=== PATIENT | male | born 1975 | race Caucasian/White ===

== ENCOUNTER 2019-06-19 16:27 | Emergency (ER) | payer BC ==
[~2019-06-19] VITALS: Ht 177.8 cm; Wt 110.0 kg
[2019-06-19 17:04] LABS: BASOPHILS # (AUTO) 0.1 X10'3 (0-0.2); BASOPHILS % (AUTO) 0.8 % (0-1); EOSINOPHILS # (AUTO) 0.1 X10'3 (0-0.9); EOSINOPHILS % (AUTO) 0.9 % (0-6); HEMATOCRIT 46.3 % (42.0-52.0); HEMOGLOBIN 16.4 g/dl (14.0-17.9); LYMPHOCYTES # (AUTO) 1.9 X10'3 (1.1-4.8); LYMPHOCYTES % (AUTO) 19.4 % (21-51); MEAN CORPUSCULAR HEMOGLOBIN 30.6 PG (27.0-31.0); MEAN CORPUSCULAR HGB CONC 35.4 g/dL (33.0-36.5); MEAN CORPUSCULAR VOLUME 86.4 FL (78-98); MEAN PLATELET VOLUME 10.3 FL (7.4-10.4); MONOCYTES # (AUTO) 0.6 X10'3 (0-0.9); MONOCYTES % (AUTO) 6.5 % (2-12); NEUTROPHILS # (AUTO) 7.1 X10'3 (1.8-7.7); NEUTROPHILS % (AUTO) 72.4 % (42-75); PLATELET COUNT 154 X10'3 (140-440); RED BLOOD COUNT 5.36 X10'6 (4.70-6.10); RED CELL DISTRIBUTION WIDTH 12.9 % (11.5-14.5); WHITE BLOOD COUNT 9.7 X10'3 (4.5-11.0)
[2019-06-19 17:26] LABS: ALANINE AMINOTRANSFERASE 95 U/L (12-78); ALBUMIN 3.6 G/DL (3.4-5.0); ALKALINE PHOSPHATASE 78 IU/L (46-116); ANION GAP 6 (8-16); ASPARTATE AMINO TRANSFERASE 41 U/L (10-37); BILIRUBIN,TOTAL 0.6 MG/DL (0.1-1.0); BLOOD UREA NITROGEN 17 MG/DL (7-18); BUN/CREATININE RATIO 15.2 (5.4-32.0); CALCIUM 9.3 MG/DL (8.5-10.1); CHLORIDE 102 MMOL/L (99-107); CREATININE 1.12 MG/DL (0.60-1.10); GLUCOSE 281 MG/DL (70-104); POTASSIUM 4.1 MMOL/L (3.5-5.1); SODIUM 136 MMOL/L (135-145); TOTAL CARBON DIOXIDE 28.2 MMOL/L (24-32); TOTAL PROTEIN 7.3 G/DL (6.4-8.2); eGFR 72 ML/MIN
[2019-06-19 18:16] LABS: CLARITY,URINE CLEAR (Clear); COLOR,URINE YELLOW (Yellow); GLUCOSE, URINE >=1000 mg/dl (Neg); KETONES,URINE NEGATIVE (Neg); LEUKOCYTE ESTERASE ,URINE NEGATIVE (Neg); NITRITES, URINE NEGATIVE (Neg); OCCULT BLOOD,URINE TRACE-INTACT (Neg); PROTEIN,URINE >=300 mg/dl (Neg); UROBILINOGEN,URINE 0.2 E.U/dL (0.2-1.0)
[2019-06-19 18:20] LABS: UA COLLECTION TYPE CLN CATCH MIDSTREAM
[2019-06-19 18:26] LABS: COARSE GRANULAR CAST 0-3 /LPF (NEGATIVE); HYALINE CASTS 0-3 /LPF (NEGATIVE); MUCUS STRANDS FEW /LPF (Neg); SQUAMOUS EPITHELIAL CELL,UR MODERATE /LPF (FEW)
[2019-06-19 18:27] LABS: BACTERIA,URINE FEW /HPF (Neg); RBC,URINE 0-2 /HPF (0-2); WBC,URINE 0-4 /HPF (0-4)
[2019-06-19] MEDS ORDERED: morphine 4 MG/ML inj SYRINge IV PRN (18:35)
[2019-06-19] MEDS ORDERED: metoclopramide 5 mg/ml inj IV ONE (18:35)
[2019-06-19] MEDS ORDERED: normal saline 1000ML IV soln IVB ONE (18:35)
[2019-06-19 19:04] LABS: LIPASE 187 U/L (73-393)
[2019-06-19] MEDS ORDERED: NAPR-56 PO (19:40)
[2019-06-19] MEDS ORDERED: ONDA4TAB6 PO (19:40)
[2019-06-19 20:03] VITALS: BP 135/97
== END 2019-06-19 20:01 | disposition home or self-care (01) ==
LOC: ER 16:27
DX: R10.11 Right upper quadrant pain (principal); R10.31 Right lower quadrant pain; R19.7 Diarrhea, unspecified; R11.2 Nausea with vomiting, unspecified; E11.9 Type 2 diabetes mellitus without complications; F10.99 Alcohol use, unspecified with unspecified alcohol-induced disorder; Z79.899 Other long term (current) drug therapy; Y90.9 Presence of alcohol in blood, level not specified
CPT/HCPCS: 36415; 74176; 80053; 81001; 83690; 85025; 85610; 96361; 96374; 96375; 99284; J2270; J2765; J7030

== ENCOUNTER 2019-10-04 23:18 | Emergency (ER) | payer BC, OTHER ==
[~2019-10-04] VITALS: Ht 177.8 cm; Wt 109.3 kg
[~2019-10-04 23:18] MED LIST: ONDA4TAB6 PO
[2019-10-04 23:20] VITALS: BP 180/100
[2019-10-05] MEDS ORDERED: orphenadrine citrate 60mg/2ml inj. IM ONE (00:40)
[2019-10-05] MEDS ORDERED: ketorolac tromethamine 15mg/ml inj. IM ONE (00:40)
[2019-10-05] MEDS ORDERED: IBUP-1985 PO (00:41)
[2019-10-05] MEDS ORDERED: METH-360 PO (00:41)
== END 2019-10-05 01:02 | disposition home or self-care (01) ==
LOC: ER 23:18
DX: M54.41 Lumbago with sciatica, right side (principal); E11.9 Type 2 diabetes mellitus without complications; F10.99 Alcohol use, unspecified with unspecified alcohol-induced disorder; Z79.899 Other long term (current) drug therapy; Y90.9 Presence of alcohol in blood, level not specified
CPT/HCPCS: 96372; 99284; J1885; J2360

== ENCOUNTER 2020-08-27 12:16 | Inpatient (IN) | payer OTHER ==
[~2020-08-27] VITALS: Ht 177.8 cm; Wt 109.1 kg
[~2020-08-27 12:16] MED LIST changes: +IBUP-1985 PO; +METH-360 PO
[2020-08-27 12:36] LABS: BASOPHILS # (AUTO) 0.1 X10'3 (0-0.2); BASOPHILS % (AUTO) 0.7 % (0-1); EOSINOPHILS # (AUTO) 0.1 X10'3 (0-0.9); EOSINOPHILS % (AUTO) 1.1 % (0-6); HEMATOCRIT 46.6 % (42.0-52.0); HEMOGLOBIN 15.9 g/dl (14.0-17.9); LYMPHOCYTES # (AUTO) 2.8 X10'3 (1.1-4.8); LYMPHOCYTES % (AUTO) 23.3 % (21-51); MEAN CORPUSCULAR HEMOGLOBIN 29.5 PG (27.0-31.0); MEAN CORPUSCULAR HGB CONC 34.2 g/dL (33.0-36.5); MEAN CORPUSCULAR VOLUME 86.2 FL (78-98); MEAN PLATELET VOLUME 10.6 FL (7.4-10.4); MONOCYTES # (AUTO) 0.8 X10'3 (0-0.9); MONOCYTES % (AUTO) 6.9 % (2-12); NEUTROPHILS # (AUTO) 8.1 X10'3 (1.8-7.7); PLATELET COUNT 155 X10'3 (140-440); WHITE BLOOD COUNT 11.8 X10'3 (4.5-11.0)
[2020-08-27 12:53] LABS: ALANINE AMINOTRANSFERASE 42 U/L (12-78); ALBUMIN 3.1 G/DL (3.4-5.0); ALBUMIN/GLOBULIN RATIO 0.9 (1.1-1.5); ALKALINE PHOSPHATASE 83 IU/L (46-116); ANION GAP 8 (8-16); ASPARTATE AMINO TRANSFERASE 24 U/L (10-37); BILIRUBIN,TOTAL 0.3 MG/DL (0.1-1.0); BLOOD UREA NITROGEN 23 MG/DL (7-18); BUN/CREATININE RATIO 15.1 (5.4-32.0); CALCIUM 9.2 MG/DL (8.5-10.1); CHLORIDE 104 MMOL/L (99-107); CREATININE 1.52 MG/DL (0.60-1.10); GLUCOSE 167 MG/DL (70-104); POTASSIUM 3.6 MMOL/L (3.5-5.1); SODIUM 140 MMOL/L (135-145); TOTAL CARBON DIOXIDE 28.4 MMOL/L (24-32); TOTAL PROTEIN 6.5 G/DL (6.4-8.2); eGFR 50 ML/MIN
[2020-08-27] MEDS ORDERED: nitroGLYCERIN 0.4mg/hour patch TD ONE (13:20)
[2020-08-27] MEDS ORDERED: heparin 10,000 units/1 ML INJ IV ONE ×3 (13:20→15:10)
[2020-08-27] MEDS: heparin 25,000 UNIT/250ml bag 250 ML IV SCH (13:57)
[2020-08-27 14:09] LABS: PARTIAL THROMBOPLASTIN TIME 26 SECONDS (22-32)
[2020-08-27] MEDS ORDERED: HYDR12.55 PO (14:56)
[2020-08-27] MEDS ORDERED: NOVLG SQ (14:56)
[2020-08-27] MEDS ORDERED: LISI-600 PO (14:56)
[2020-08-27] MEDS ORDERED: IBUP-1986 PO (14:57)
[2020-08-27] MEDS ORDERED: INSU100I31 SQ (14:58)
[2020-08-27] MEDS ORDERED: acetaminophen 325mg tablet PO PRN (15:10)
[2020-08-27] MEDS ORDERED: MESSAGE TO PHARMACY PO ONE (15:10)
[2020-08-27] MEDS ORDERED: ondansetron/PF 4mg/2ml inj IV PRN (15:10)
[2020-08-27] MEDS ORDERED: magnesium 4gm in 100ml NS 100 ML IV PRN (15:10)
[2020-08-27] MEDS ORDERED: dextrose ORAL solution 15 GM/59 ML bottle PO PRN ×2 (15:10)
[2020-08-27] MEDS ORDERED: dextrose 50%-water 50ml dispensing syringe IV PRN ×2 (15:10)
[2020-08-27] MEDS ORDERED: metoprolol tartrate 1mg/ml inj IV PRN (15:10)
[2020-08-27] MEDS ORDERED: magnesium hydroxide 30ml (MOM) UD suspension PO PRN (15:10)
[2020-08-27] MEDS ORDERED: potassium Cl 20 mEq SR tablet PO PRN ×2 (15:10)
[2020-08-27] MEDS ORDERED: magnesium 2GM in 50ml NS 50 ML IV PRN (15:10)
[2020-08-27] MEDS ORDERED: heparin 25,000 UNIT/250ml bag 250 ML IV SCH (15:10)
[2020-08-27] MEDS ORDERED: regadenoson 0.4mg/5ml syringe IV PRN (15:10)
[2020-08-27] MEDS ORDERED: nitroGLYCERIN 0.4mg SUBLingual tab SL PRN (15:10)
[2020-08-27] MEDS ORDERED: heparin 10,000 units/1 ML INJ IV PRN (15:10)
[2020-08-27] MEDS ORDERED: aminophylline 250mg/10ml inj. IV PRN (15:10)
[2020-08-27] MEDS ORDERED: glucagon, human recombinant 1mg kit SUBCUT PRN (15:10)
[2020-08-27] MEDS ORDERED: potassium Cl 40MEQ/1/2NS 520ml 520 ML IV PRN ×2 (15:10)
[2020-08-27] MEDS ORDERED: mag hydrox/Alum hydrox/simeth 30ml oral suspension PO PRN (15:10)
[2020-08-27 15:54] LABS: HEMOGLOBIN A1C 9.3 % (4.5-6.2)
[2020-08-27] MEDS: normal saline 1000ml 1,000 ML IV SCH (16:01)
--- NOTE | 2020-08-27 16:29 | NUR ---
received Pt report from ED RN. Had opportunity to ask questions concerning Pt care and plan. Awaiting arrival of Pt to room 7646W
[2020-08-27 16:58] LABS: BASOPHILS # (AUTO) 0.1 X10'3 (0-0.2); BASOPHILS % (AUTO) 0.7 % (0-1); EOSINOPHILS # (AUTO) 0.1 X10'3 (0-0.9); EOSINOPHILS % (AUTO) 0.8 % (0-6); HEMATOCRIT 44.9 % (42.0-52.0); HEMOGLOBIN 15.5 g/dl (14.0-17.9); LYMPHOCYTES # (AUTO) 2.9 X10'3 (1.1-4.8); LYMPHOCYTES % (AUTO) 26.5 % (21-51); MEAN CORPUSCULAR HGB CONC 34.5 g/dL (33.0-36.5); MEAN CORPUSCULAR VOLUME 86.8 FL (78-98); MONOCYTES # (AUTO) 0.6 X10'3 (0-0.9); MONOCYTES % (AUTO) 5.4 % (2-12); NEUTROPHILS # (AUTO) 7.4 X10'3 (1.8-7.7); NEUTROPHILS % (AUTO) 66.6 % (42-75); PLATELET COUNT 153 X10'3 (140-440); RED BLOOD COUNT 5.17 X10'6 (4.70-6.10); RED CELL DISTRIBUTION WIDTH 12.9 % (11.5-14.5); WHITE BLOOD COUNT 11.1 X10'3 (4.5-11.0)
[2020-08-27] MEDS ORDERED: aspirin 325mg tablet PO ONE (17:10)
[2020-08-27] MEDS ORDERED: metoprolol tartrate 50mg tablet PO ONE (17:15)
[2020-08-27] MEDS ORDERED: clopidogrel 300mg tablet PO SCH (17:30)
[2020-08-27 17:35] LABS: URINE AMPHETAMINE SCREEN NEGATIVE (Neg); URINE BARBITUATE SCREEN NEGATIVE (Neg); URINE BENZODIAZEPINES SCREEN NEGATIVE (Neg); URINE CANNABINOID SCREEN NEGATIVE (Neg); URINE COCAINE SCREEN NEGATIVE (Neg); URINE METHADONE SCREEN NEGATIVE (Neg); URINE OPIATE SCREEN NEGATIVE (Neg); URINE PHENCYCLIDINE SCREEN NEGATIVE (Neg)
[2020-08-27] MEDS ORDERED: normal saline 1000ml 1,000 ML IV SCH (17:35)
[2020-08-27 17:37] LABS: LARGE PLATELETS FEW; PLATELET ESTIMATE NORMAL
--- NOTE | 2020-08-27 17:44 | NUR ---
PAGER ID: [phone] MESSAGE: Re: Lucio Perea. Room: [facility]. Pt has NS at 100/hr and 250/hr ordered. Do you want 100/hr canceled? -[facility] #[id number] Dr. Savage paged concerning fluid order.
[2020-08-27] MEDS: atorvastatin 20mg tablet PO SCH (17:54)
[2020-08-27 18:00] VITALS: BP 146/84
--- NOTE | 2020-08-27 18:22 | NUR ---
Problems reprioritized. Patient report given, questions answered & plan of care reviewed with Saul THOMPSON.
--- NOTE | 2020-08-27 18:30 | NUR ---
Patient in room U 3015. I have received report from DONNA Gonzalez and had the opportunity to ask questions and assume patient care. Patient resting in bed, no signs of distress. Safety measures in place, bed in low and locked position. Call light and personal items within reach. Will continue to monitor.
--- NOTE | 2020-08-27 19:24 | NUR ---
Notified Dr. Gomez of increase in troponin from 0.15 to 0.23. No new orders.
[2020-08-27] MEDS ORDERED: K and/or MAG REPLACEMENT MC SCH (20:00)
[2020-08-27] MEDS: metoprolol tartrate 25mg tablet PO SCH (20:14)
[2020-08-27] MEDS ORDERED: insulin glargine (Lantus) pen - multi-dose SQ SCH (21:00)
[2020-08-27] MEDS: heparin 10,000 units/1 ML INJ IV PRN (21:20)
[2020-08-27 22:00] VITALS: BP 154/85
[2020-08-28] VITALS (17 sets, daily range): BP systolic 125–171; BP diastolic 73–111
--- NOTE | 2020-08-28 02:01 | NUR ---
Called Dr. Gomez regarding unresolved head pain from acetaminophen. ordered [place] 5mg PO q4h PRN.
[2020-08-28] MEDS: HYDROcodone/acetaminophen 5mg/325mg tablet PO PRN ×3 (02:08→14:56)
[2020-08-28] MEDS: normal saline 1000ml 1,000 ML IV SCH ×2 (02:09→09:34)
[2020-08-28 03:45] LABS: BASOPHILS # (AUTO) 0.1 X10'3 (0-0.2); BASOPHILS % (AUTO) 0.5 % (0-1); EOSINOPHILS # (AUTO) 0.1 X10'3 (0-0.9); EOSINOPHILS % (AUTO) 0.8 % (0-6); HEMATOCRIT 43.5 % (42.0-52.0); HEMOGLOBIN 14.9 g/dl (14.0-17.9); LYMPHOCYTES # (AUTO) 3.1 X10'3 (1.1-4.8); LYMPHOCYTES % (AUTO) 21.8 % (21-51); MEAN CORPUSCULAR HEMOGLOBIN 29.7 PG (27.0-31.0); MEAN CORPUSCULAR HGB CONC 34.1 g/dL (33.0-36.5); MEAN PLATELET VOLUME 11.4 FL (7.4-10.4); MONOCYTES # (AUTO) 0.9 X10'3 (0-0.9); NEUTROPHILS # (AUTO) 10.1 X10'3 (1.8-7.7); NEUTROPHILS % (AUTO) 70.9 % (42-75); PLATELET COUNT 153 X10'3 (140-440); RED CELL DISTRIBUTION WIDTH 13.4 % (11.5-14.5); WHITE BLOOD COUNT 14.2 X10'3 (4.5-11.0)
[2020-08-28 03:59] LABS: ALANINE AMINOTRANSFERASE 36 U/L (12-78); ALBUMIN 2.8 G/DL (3.4-5.0); ALBUMIN/GLOBULIN RATIO 0.9 (1.1-1.5); ALKALINE PHOSPHATASE 74 IU/L (46-116); ANION GAP 8 (8-16); ASPARTATE AMINO TRANSFERASE 22 U/L (10-37); BILIRUBIN,TOTAL 0.5 MG/DL (0.1-1.0); BLOOD UREA NITROGEN 18 MG/DL (7-18); BUN/CREATININE RATIO 15.5 (5.4-32.0); CALCIUM 8.1 MG/DL (8.5-10.1); CHLORIDE 106 MMOL/L (99-107); CREATININE 1.16 MG/DL (0.60-1.10); GLUCOSE 168 MG/DL (70-104); POTASSIUM 3.8 MMOL/L (3.5-5.1); SODIUM 140 MMOL/L (135-145); TOTAL CARBON DIOXIDE 25.8 MMOL/L (24-32); TOTAL PROTEIN 5.9 G/DL (6.4-8.2); eGFR 69 ML/MIN
[2020-08-28 04:03] LABS: CHOL/HDL RATIO 5.7 (0.00-4.99); CHOLESTEROL 195 MG/DL (0-200); HDL CHOLESTEROL 34 MG/DL (35-60); LDL CHOLESTEROL 122 MG/DL (50-100); MAGNESIUM 1.8 MG/DL (1.5-2.4); TRIGLYCERIDES 225 MG/DL (20-135)
[2020-08-28] MEDS: heparin 10,000 units/1 ML INJ IV PRN ×2 (04:31→12:59)
--- NOTE | 2020-08-28 06:00 | NUR ---
Patient in room PCU 3015. I have received report from Saul and had the opportunity to ask questions and assume patient care with Meghan Nunez
--- NOTE | 2020-08-28 06:10 | NUR ---
Problems reprioritized. Patient report given, questions answered & plan of care reviewed with DONNA Christianson. VSS. Care plans followed. Medications adminsitered as ordered. Safety measures in place, bed in low and locked position. Call light and personal items within reach. Will continue to monitor for remainder of shift.
--- NOTE | 2020-08-28 06:50 | NUR ---
Patient in room PCU 3015. I have received report from DONNA Hughes and had the opportunity to ask questions and assume patient care. Patient stable at transfer of care.
[2020-08-28] MEDS ORDERED: HYDROchlorothiazide 12.5mg capsule PO SCH (08:00)
[2020-08-28] MEDS ORDERED: lisinopril 20mg tablet PO SCH (08:00)
[2020-08-28] MEDS ORDERED: nitroGLYCERIN 0.4mg/hour patch TD SCH (08:00)
[2020-08-28] MEDS ORDERED: clopidogrel 75mg tablet PO SCH (08:00)
[2020-08-28] MEDS ORDERED: aspirin 325mg tablet PO SCH (08:30)
--- NOTE | 2020-08-28 08:31 | NUR ---
Paged Dr. Howe regarding patient going for stress test. PAGER ID: [phone] MESSAGE: [id number]. Lucio Perea. Troponin went up. Would you still like for the patient to have the lexiscan today? Thank you. Meghan THOMPSON x [phone] Addendum: 08/28/20 at 0909 by Meghan Mosley RN Dr. Howe called back and said that per Dr. Valentino's note to have the lexiscan done if his troponin doesn't rise to 2. Dr. Howe said to proceed with the lexiscan.
[2020-08-28] MEDS: insulin Lispro (HumaLOG) vial - multi-dose SQ SCH ×2 (08:35→14:20)
[2020-08-28] MEDS: atorvastatin 20mg tablet PO SCH (08:45)
[2020-08-28] MEDS: metoprolol tartrate 25mg tablet PO SCH (08:45)
[2020-08-28] MEDS: heparin 25,000 UNIT/250ml bag 250 ML IV SCH ×2 (09:37→13:05)
--- NOTE | 2020-08-28 10:29 | NUR ---
Patient went down to nuclear medicine.
--- NOTE | 2020-08-28 12:47 | NUR ---
Patient back from nuclear medicine.
--- NOTE | 2020-08-28 12:49 | NUR ---
Paged Dr. Howe regarding patient being back from nuclear medicine. PAGER ID: [phone] MESSAGE: [phone]. Lucio Perea. Patient is back from [facility]. Thank you. Meghan THOMPSON x [phone]
--- NOTE | 2020-08-28 14:28 | NUR ---
DM consult, A1c 9.3%, met at bedside and given written DM education handout with verbal review. Pt reports his A1c is usually well controlled and around 6.9%, had a back injury and began receiving cortisone injections and states that since that his blood glucose has been more difficult to control. Pt reports that he receives outpatient DM counseling with Boaz Guerrero at [facility] and will continue to do so. Pt has no questions or nutrition concerns at this time. Addendum: 08/28/20 at [address] Amended: Links added.
--- NOTE | 2020-08-28 16:01 | NUR ---
Paged Dr. Howe regarding lexiscan results. PAGER ID: [phone] MESSAGE: [phone]. Lucio Perea. Results of [employer]Rally Softwarean are available. Thank you. Meghan THOMPSON x [phone]
[2020-08-28] MEDS ORDERED: ATOR20TA66 PO (16:27)
[2020-08-28] MEDS ORDERED: metoprolol tartrate tablet PO (16:27)
[2020-08-28] MEDS ORDERED: CLOP75TA35 PO (16:30)
[2020-08-28] MEDS ORDERED: ASPI81TA52 PO (16:30)
--- NOTE | 2020-08-28 17:04 | NUR ---
Patient stable for discharge per MD orders. All discharge instructions reviewed and questions answered appropriately. Belongings collected and sent with the patient. New prescriptions will be called into [facility] tomorrow since they are closed this evening. 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 PIV discontinued. desk monitor discontinued. Patient walked down to the [facility] and left via private vehicle.
== END 2020-08-28 17:03 | disposition home or self-care (01) | DRG 311 ==
LOC: ER 12:16 → ED HOLD 15:08 → PCU 3S 17:20
PROVIDERS: ADMIT Family Medicine; ATTEND Family Medicine
PROC: 4A02XM4 Measurement of Cardiac Total Activity, External Approach (ICD-10-PCS; principal; 2020-08-28)
PROC: 3E033HZ Introduction of Radioactive Substance into Peripheral Vein, Percutaneous Approach (ICD-10-PCS; 2020-08-28)
DX: I24.9 Acute ischemic heart disease, unspecified (principal); E11.22 Type 2 diabetes mellitus with diabetic chronic kidney disease; E11.65 Type 2 diabetes mellitus with hyperglycemia; E78.00 Pure hypercholesterolemia, unspecified; E78.5 Hyperlipidemia, unspecified; F17.210 Nicotine dependence, cigarettes, uncomplicated; I12.9 Hypertensive chronic kidney disease with stage 1 through stage 4 chronic kidney disease, or unspecified chronic kidney disease; N18.9 Chronic kidney disease, unspecified; Z20.828 Contact with and (suspected) exposure to other viral communicable diseases; Z79.4 Long term (current) use of insulin; Z80.0 Family history of malignant neoplasm of digestive organs; Z80.1 Family history of malignant neoplasm of trachea, bronchus and lung; Z82.49 Family history of ischemic heart disease and other diseases of the circulatory system; Z83.3 Family history of diabetes mellitus
CPT/HCPCS: 36415; 71045; 78452; 80053; 80061; 80305; 82948; 83036; 83735; 83880; 84484; 85008; 85025; 85610; 85730; 87081; 87635; 93005; 93017; 93306; 93308; 96374; 99285; A9500; G0378; J0280; J1644; J1815; J2785; J7030

== ENCOUNTER 2020-11-25 06:57 | Day surgery (SDC) | payer OTHER ==
[2020-11-24 12:53] LABS: BASOPHILS # (AUTO) 0.1 X10'3 (0-0.2); BASOPHILS % (AUTO) 0.8 % (0-1); EOSINOPHILS # (AUTO) 0.1 X10'3 (0-0.9); EOSINOPHILS % (AUTO) 0.8 % (0-6); HEMATOCRIT 45.2 % (42.0-52.0); HEMOGLOBIN 15.6 g/dl (14.0-17.9); LYMPHOCYTES # (AUTO) 3.5 X10'3 (1.1-4.8); MEAN CORPUSCULAR HEMOGLOBIN 29.3 PG (27.0-31.0); MEAN CORPUSCULAR HGB CONC 34.6 g/dL (33.0-36.5); MEAN CORPUSCULAR VOLUME 84.6 FL (78-98); MEAN PLATELET VOLUME 10.6 FL (7.4-10.4); MONOCYTES # (AUTO) 0.8 X10'3 (0-0.9); MONOCYTES % (AUTO) 6.5 % (2-12); NEUTROPHILS # (AUTO) 8.5 X10'3 (1.8-7.7); NEUTROPHILS % (AUTO) 64.9 % (42-75); PLATELET COUNT 183 X10'3 (140-440); RED BLOOD COUNT 5.34 X10'6 (4.70-6.10); WHITE BLOOD COUNT 13.1 X10'3 (4.5-11.0)
[2020-11-24 13:06] LABS: PARTIAL THROMBOPLASTIN TIME 24 SECONDS (22-32)
[2020-11-24 13:16] LABS: LARGE PLATELETS FEW; PLATELET ESTIMATE NORMAL
[2020-11-24 13:18] LABS: ALANINE AMINOTRANSFERASE 38 U/L (12-78); ALBUMIN 3.2 G/DL (3.4-5.0); ALBUMIN/GLOBULIN RATIO 0.9 (1.1-1.5); ALKALINE PHOSPHATASE 78 IU/L (46-116); ANION GAP 7 (8-16); ASPARTATE AMINO TRANSFERASE 20 U/L (10-37); BILIRUBIN,TOTAL 0.4 MG/DL (0.1-1.0); BLOOD UREA NITROGEN 19 MG/DL (7-18); BUN/CREATININE RATIO 15.6 (5.4-32.0); CALCIUM 9.1 MG/DL (8.5-10.1); CHLORIDE 100 MMOL/L (99-107); CHOLESTEROL 210 MG/DL (0-200); CREATININE 1.22 MG/DL (0.60-1.10); GLUCOSE 241 MG/DL (70-104); HDL CHOLESTEROL 35 MG/DL (35-60); LDL CHOLESTEROL 97 MG/DL (50-100); POTASSIUM 3.6 MMOL/L (3.5-5.1); SODIUM 136 MMOL/L (135-145); TOTAL CARBON DIOXIDE 28.8 MMOL/L (24-32); TOTAL PROTEIN 6.9 G/DL (6.4-8.2); TRIGLYCERIDES 398 MG/DL (20-135); eGFR 65 ML/MIN
[~2020-11-25] VITALS: Ht 177.8 cm; Wt 107.0 kg
[2020-11-25] VITALS (14 sets, daily range): BP systolic 142–188; BP diastolic 89–130
[~2020-11-25 06:57] MED LIST changes: +ATOR20TA66 PO; +CLOP75TA34 PO; +HYDR12.55 PO; -IBUP-1985 PO; +INSU100I31 SQ; +LISI20TA28 PO; -METH-360 PO; +NOVLG SQ; -ONDA4TAB6 PO; +metoprolol tartrate tablet PO
[2020-11-25] MEDS ORDERED: acetylcysteine 200 MG/ml 4ml vial PO PRN (07:20)
[2020-11-25] MEDS ORDERED: diphenhydrAMINE 25mg capsule PO PRN (07:20)
[2020-11-25] MEDS ORDERED: LIDOcaine/PRILOcaine 5gm cream TP ONE (07:20)
[2020-11-25] MEDS ORDERED: LORazepam 0.5 MG tablet PO PRN (07:20)
[2020-11-25] MEDS ORDERED: normal saline 1000ml 1,000 ML IV SCH (07:20)
[2020-11-25] MEDS ORDERED: CLOP75TA15 PO (07:28)
[2020-11-25] MEDS ORDERED: ACET-3174 PO (07:28)
[2020-11-25] MEDS ORDERED: METO-539 PO (07:28)
[2020-11-25] MEDS ORDERED: ASPI-280 PO (07:28)
[2020-11-25] MEDS ORDERED: verapamil 2.5 mg/ml inj IV ONE (08:26)
[2020-11-25] MEDS ORDERED: midazolam 1 mg/ML 2ml injection ONE (08:26)
[2020-11-25] MEDS ORDERED: LIDOcaine 1% (10mg/ml)w/preservative injection 20ml MDV ONE (08:27)
[2020-11-25] MEDS ORDERED: heparin 1,000unit/ml 10ml vial 10 ML ONE (08:27)
[2020-11-25] MEDS ORDERED: nitroGLYCERIN-Tridil 50MG/D5W 250 ML IV ONE (08:27)
[2020-11-25] MEDS ORDERED: fentaNYL/PF 50MCG/1 ML 2ML syringe ONE (08:27)
[2020-11-25] MEDS ORDERED: iohexol 350MG/ML 100ml bottle IV ONE (08:27)
[2020-11-25] MEDS ORDERED: metoprolol succinate 25mg (24-HOUR) SR. Tablet PO ONE (11:05)
[2020-11-25] MEDS ORDERED: lisinopril 20mg tablet PO ONE (11:05)
[2020-11-25] MEDS ORDERED: acetaminophen 325mg tablet PO ONE (11:05)
[2020-11-25] MEDS ORDERED: HYDROcodone/acetaminophen 5mg/325mg tablet PO ONE (12:30)
[2020-11-25] MEDS ORDERED: HYDROcodone/acetaminophen 10/325mg tab PO ONE (12:30)
[2020-11-25] MEDS ORDERED: morphine 2 MG/ML inj. syringe IV PRN (12:30)
--- NOTE | 2020-11-25 13:30 | NUR ---
Dr. Smith notified of continued elevated blood pressure. New orders received.
[2020-11-25] MEDS ORDERED: hydrALAZINE 20mg/ml inj. IV ONE (13:55)
--- NOTE | 2020-11-25 14:20 | NUR ---
Meds given as ordered with good results. MD gave orders to discharge pt to home if SBP lower than 145. Pt will be discharged to home with instructions to keep an eye on bp an notify primary MD.
== END 2020-11-25 14:30 | disposition home or self-care (01) ==
LOC: SSTAY O 06:57
PROVIDERS: ATTEND Internal Medicine Cardiovascular Disease
DX: R06.02 Shortness of breath (principal); R53.83 Other fatigue; R07.9 Chest pain, unspecified; I25.10 Atherosclerotic heart disease of native coronary artery without angina pectoris; E11.9 Type 2 diabetes mellitus without complications; E78.5 Hyperlipidemia, unspecified; I10 Essential (primary) hypertension; I25.2 Old myocardial infarction; M47.896 Other spondylosis, lumbar region; E66.9 Obesity, unspecified; Z68.34 Body mass index [BMI] 34.0-34.9, adult; F17.211 Nicotine dependence, cigarettes, in remission; Z79.4 Long term (current) use of insulin; Z79.01 Long term (current) use of anticoagulants; Z79.82 Long term (current) use of aspirin; Z98.890 Other specified postprocedural states
CPT/HCPCS: 36415; 76937; 80053; 80061; 82948; 85025; 85610; 85730; 93005; 93458; 99152; 99153; C1769; C1894; J0360; J1644; J2001; J2250; J3010; J7030; Q0163; Q9967; 85008; A4620; J3490

== ENCOUNTER 2022-03-23 00:06 | Inpatient (IN) | payer OTHER ==
[~2022-03-23] VITALS: Ht 177.8 cm; Wt 110.5 kg
[~2022-03-23 00:06] MED LIST changes: +ACET-3174 PO; +ASPI-280 PO; -ATOR20TA66 PO; +CLOP75TA15 PO; -CLOP75TA34 PO; -HYDR12.55 PO; +METO-539 PO; -metoprolol tartrate tablet PO
[2022-03-23] MEDS ORDERED: aspirin 81mg tab.chew PO ONE (00:25)
[2022-03-23] MEDS ORDERED: labetalol 20mg/4ml (5mg/ml) syringe IV ONE ×2 (00:25)
[2022-03-23] MEDS ORDERED: acetaminophen 325mg tablet PO STA (00:52)
[2022-03-23 00:53] LABS: HEMOGLOBIN 15.1 g/dl (14.0-17.9)
[2022-03-23 00:54] LABS: BASOPHILS % (AUTO) 0.3 % (0-1); EOSINOPHILS # (AUTO) 0.1 X10'3 (0-0.9); EOSINOPHILS % (AUTO) 1.3 % (0-6); LYMPHOCYTES # (AUTO) 0.3 X10'3 (1.1-4.8); LYMPHOCYTES % (AUTO) 5.3 % (21-51); MEAN CORPUSCULAR HGB CONC 34.4 g/dL (33.0-36.5); MEAN CORPUSCULAR VOLUME 84.2 FL (78-98); MEAN PLATELET VOLUME 9.9 FL (7.4-10.4); MONOCYTES # (AUTO) 0.5 X10'3 (0-0.9); MONOCYTES % (AUTO) 8.2 % (2-12); NEUTROPHILS # (AUTO) 5.6 X10'3 (1.8-7.7); NEUTROPHILS % (AUTO) 84.9 % (42-75); PLATELET COUNT 137 X10'3 (140-440); RED BLOOD COUNT 5.22 X10'6 (4.70-6.10); RED CELL DISTRIBUTION WIDTH 13.2 % (11.5-14.5); WHITE BLOOD COUNT 6.6 X10'3 (4.5-11.0)
[2022-03-23] MEDS: niCARDipine-NS 40mg/200ml IVPB 200 ML IV SCH ×3 (01:06→16:40)
[2022-03-23 01:08] LABS: ALANINE AMINOTRANSFERASE 44 U/L (12-78); ALBUMIN 3.3 G/DL (3.4-5.0); ALBUMIN/GLOBULIN RATIO 0.9 (1.1-1.5); ALKALINE PHOSPHATASE 70 IU/L (46-116); ANION GAP 3 (8-16); ASPARTATE AMINO TRANSFERASE 27 U/L (10-37); BILIRUBIN,TOTAL 0.2 MG/DL (0.1-1.0); BLOOD UREA NITROGEN 21 MG/DL (7-18); CALCIUM 8.6 MG/DL (8.5-10.1); CHLORIDE 102 MMOL/L (99-107); CREATININE 1.62 MG/DL (0.60-1.10); GLUCOSE 163 MG/DL (70-104); SODIUM 136 MMOL/L (135-145); TOTAL CARBON DIOXIDE 30.6 MMOL/L (24-32); TOTAL PROTEIN 6.9 G/DL (6.4-8.2); eGFR 46 ML/MIN
[2022-03-23 01:31] LABS: CLARITY,URINE CLEAR (Clear); COLOR,URINE YELLOW (Yellow); GLUCOSE, URINE 100 mg/dl (Neg); KETONES,URINE NEGATIVE (Neg); LEUKOCYTE ESTERASE ,URINE NEGATIVE (Neg); NITRITES, URINE NEGATIVE (Neg); OCCULT BLOOD,URINE MODERATE (Neg); PROTEIN,URINE 100 mg/dl (Neg); UROBILINOGEN,URINE 0.2 E.U/dL (0.2-1.0)
[2022-03-23 01:35] LABS: UA COLLECTION TYPE CLN CATCH MIDSTREAM
[2022-03-23 01:39] LABS: BACTERIA,URINE NONE SEEN /HPF (Neg); RBC,URINE NONE SEEN /HPF (0-2); SQUAMOUS EPITHELIAL CELL,UR NONE SEEN /LPF (FEW)
[2022-03-23] MEDS ORDERED: CefTRIAXone 2gm/D5W 50ml BAG 50 ML IV ONE (01:40)
[2022-03-23 01:44] LABS: URINE AMPHETAMINE SCREEN NEGATIVE (Neg); URINE BARBITUATE SCREEN NEGATIVE (Neg); URINE BENZODIAZEPINES SCREEN NEGATIVE (Neg); URINE CANNABINOID SCREEN NEGATIVE (Neg); URINE COCAINE SCREEN NEGATIVE (Neg); URINE METHADONE SCREEN NEGATIVE (Neg); URINE OPIATE SCREEN NEGATIVE (Neg); URINE PHENCYCLIDINE SCREEN NEGATIVE (Neg)
[2022-03-23] MEDS ORDERED: iohexol 350MG/ML 100ml bottle IV ONE (02:15)
[2022-03-23] MEDS ORDERED: glucagon, human recombinant 1mg kit SUBCUT PRN (02:25)
[2022-03-23] MEDS ORDERED: HYDROcodone/acetaminophen 5mg/325mg tablet PO PRN (02:25)
[2022-03-23] MEDS ORDERED: MESSAGE TO PHARMACY PO ONE (02:25)
[2022-03-23] MEDS ORDERED: ondansetron 4mg rapidly disintigrating tab PO PRN (02:25)
[2022-03-23] MEDS ORDERED: magnesium hydroxide 30ml (MOM) UD suspension PO PRN ×2 (02:25)
[2022-03-23] MEDS ORDERED: bisacodyl 10mg suppository rectal RC PRN (02:25)
[2022-03-23] MEDS ORDERED: diphenhydrAMINE 25mg capsule PO PRN (02:25)
[2022-03-23] MEDS ORDERED: DEXTROSE 15 GM of carb/4 tabs (each vial/BOTTLE has 4 tablets) PO PRN ×2 (02:25)
[2022-03-23] MEDS ORDERED: acetaminophen 650mg rectal suppository RC PRN (02:25)
[2022-03-23] MEDS ORDERED: mag hydrox/Alum hydrox/simeth 30ml oral suspension PO PRN ×2 (02:25)
[2022-03-23] MEDS ORDERED: morphine 2 MG/ML inj. syringe IV PRN ×2 (02:25)
[2022-03-23] MEDS ORDERED: acetaminophen 325mg tablet PO PRN ×3 (02:25)
[2022-03-23] MEDS ORDERED: dextrose 50%-water 50ml dispensing syringe IV PRN ×2 (02:25)
[2022-03-23] MEDS ORDERED: ipratropium/albuterol 3ml nebule NEB PRN (02:25)
[2022-03-23 02:59] LABS: APTT 28 SECONDS (22-32)
[2022-03-23 03:00] LABS: PHOSPHORUS 3.2 MG/DL (2.3-4.5)
[2022-03-23 03:14] LABS: HEMOGLOBIN A1C 7.8 % (4.5-6.2)
[2022-03-23] MEDS: HYDROcodone/acetaminophen 10/325mg tab PO PRN (03:18)
[2022-03-23 04:12] LABS: CREATINE KINASE 143 U/L (39-308); LIPASE 112 U/L (73-393)
[2022-03-23] MEDS: normal saline 1000ml 1,000 ML IV SCH (04:42)
[2022-03-23] MEDS: ondansetron/PF 4mg/2ml inj IV PRN ×2 (06:41→18:03)
[2022-03-23] MEDS ORDERED: docusate sod 100mg capsule PO SCH (08:00)
[2022-03-23] MEDS: docusate sod 100mg capsule PO SCH ×2 (08:00→20:00)
[2022-03-23] MEDS: furosemide 20 MG/2 ML vial IV SCH ×2 (08:18→20:23)
[2022-03-23] MEDS: azithromycin/NS 500mg/250ml 250 ML IV SCH (08:18)
--- NOTE | 2022-03-23 10:02 | NUR ---
hospitalist paged regarding headache. awaiting call back.
[2022-03-23] MEDS ORDERED: ketorolac trometh. 30mg/ml inj. IV ONE (10:30)
[2022-03-23] MEDS: diphenhydrAMINE 50 mg/ml inj IV PRN ×2 (10:43→21:02)
[2022-03-23] MEDS: amLODIPine 5mg tablet PO SCH (11:30)
[2022-03-23] MEDS: labetalol 100mg tablet PO SCH ×2 (11:32→20:23)
--- NOTE | 2022-03-23 12:00 | NUR ---
lunch tray provided for pt
--- NOTE | 2022-03-23 12:30 | NUR ---
cardene gtt turned off per verbal order from dr. lockwood one hour after po blood pressure medication.
[2022-03-23] MEDS ORDERED: HYDR25TA4 PO (12:59)
[2022-03-23] MEDS ORDERED: ASPI-1397 PO (12:59)
[2022-03-23] MEDS ORDERED: INSU100V13 SQ (12:59)
[2022-03-23] MEDS ORDERED: ROSU20TA31 PO (13:00)
[2022-03-23 18:32] LABS: MEAN PLATELET VOLUME 10.5 FL (7.4-10.4)
[2022-03-23 18:34] LABS: BASOPHILS % (AUTO) 0.5 % (0-1); EOSINOPHILS % (AUTO) 0.5 % (0-6); HEMATOCRIT 45.2 % (42.0-52.0); HEMOGLOBIN 15.5 g/dl (14.0-17.9); LYMPHOCYTES # (AUTO) 0.6 X10'3 (1.1-4.8); LYMPHOCYTES % (AUTO) 8.8 % (21-51); MEAN CORPUSCULAR HGB CONC 34.2 g/dL (33.0-36.5); MEAN CORPUSCULAR VOLUME 84.9 FL (78-98); MONOCYTES # (AUTO) 0.9 X10'3 (0-0.9); MONOCYTES % (AUTO) 12.9 % (2-12); NEUTROPHILS # (AUTO) 5.2 X10'3 (1.8-7.7); NEUTROPHILS % (AUTO) 77.3 % (42-75); PLATELET COUNT 144 X10'3 (140-440); RED BLOOD COUNT 5.33 X10'6 (4.70-6.10); RED CELL DISTRIBUTION WIDTH 13.3 % (11.5-14.5); WHITE BLOOD COUNT 6.7 X10'3 (4.5-11.0)
[2022-03-23 18:49] LABS: ALANINE AMINOTRANSFERASE 50 U/L (12-78); ALBUMIN 3.3 G/DL (3.4-5.0); ALBUMIN/GLOBULIN RATIO 0.8 (1.1-1.5); ALKALINE PHOSPHATASE 71 IU/L (46-116); ANION GAP 6 (8-16); ASPARTATE AMINO TRANSFERASE 26 U/L (10-37); BILIRUBIN,TOTAL 0.2 MG/DL (0.1-1.0); BLOOD UREA NITROGEN 22 MG/DL (7-18); BUN/CREATININE RATIO 12.8 (5.4-32.0); CALCIUM 8.8 MG/DL (8.5-10.1); CHLORIDE 100 MMOL/L (99-107); CREATININE 1.72 MG/DL (0.60-1.10); GLUCOSE 189 MG/DL (70-104); POTASSIUM 3.8 MMOL/L (3.5-5.1); SODIUM 136 MMOL/L (135-145); TOTAL CARBON DIOXIDE 29.7 MMOL/L (24-32); TOTAL PROTEIN 7.2 G/DL (6.4-8.2); eGFR 43 ML/MIN
[2022-03-23] MEDS: lisinopril 20mg tablet PO SCH (20:23)
[2022-03-23] MEDS ORDERED: temazepam 15mg capsule PO PRN (21:00)
[2022-03-23] MEDS: atorvastatin 20mg tablet PO SCH (21:02)
[2022-03-23] MEDS: HYDROmorphone inj. 0.5 MG/0.5 ML DISP.SYRIN IV PRN (21:02)
[2022-03-23] MEDS: CefTRIAXone 2gm/D5W 50ml BAG 50 ML IV SCH (23:43)
[2022-03-24] VITALS (7 sets, daily range): BP systolic 117–160; BP diastolic 55–106
--- NOTE | 2022-03-24 | NUR ---
Patient in room ED 1. I have received report from Jerel from ER and had the opportunity to ask questions and assume patient care.
--- NOTE | 2022-03-24 00:22 | NUR ---
Patient arrived on unit via W/C.
[2022-03-24] MEDS: HYDROcodone/acetaminophen 10/325mg tab PO PRN ×3 (00:28→13:26)
[2022-03-24] MEDS: insulin glargine (Lantus) pen - multi-dose SQ SCH ×2 (01:56→21:27)
[2022-03-24] MEDS: HYDROmorphone inj. 0.5 MG/0.5 ML DISP.SYRIN IV PRN ×2 (02:25→22:00)
[2022-03-24 06:04] LABS: BASOPHILS % (AUTO) 0.5 % (0-1); EOSINOPHILS % (AUTO) 0.6 % (0-6); HEMATOCRIT 44.5 % (42.0-52.0); HEMOGLOBIN 15.1 g/dl (14.0-17.9); LYMPHOCYTES # (AUTO) 1.3 X10'3 (1.1-4.8); LYMPHOCYTES % (AUTO) 21.5 % (21-51); MEAN CORPUSCULAR HEMOGLOBIN 28.8 PG (27.0-31.0); MEAN CORPUSCULAR HGB CONC 33.9 g/dL (33.0-36.5); MEAN CORPUSCULAR VOLUME 84.9 FL (78-98); MEAN PLATELET VOLUME 10.9 FL (7.4-10.4); MONOCYTES # (AUTO) 0.8 X10'3 (0-0.9); MONOCYTES % (AUTO) 13.4 % (2-12); NEUTROPHILS # (AUTO) 3.8 X10'3 (1.8-7.7); PLATELET COUNT 139 X10'3 (140-440); RED BLOOD COUNT 5.24 X10'6 (4.70-6.10); RED CELL DISTRIBUTION WIDTH 13.6 % (11.5-14.5); WHITE BLOOD COUNT 5.9 X10'3 (4.5-11.0)
--- NOTE | 2022-03-24 06:20 | NUR ---
Problems reprioritized. Patient report given, questions answered & plan of care reviewed with
[2022-03-24 06:24] LABS: ALANINE AMINOTRANSFERASE 40 U/L (12-78); ALBUMIN 3.1 G/DL (3.4-5.0); ALBUMIN/GLOBULIN RATIO 0.8 (1.1-1.5); ALKALINE PHOSPHATASE 64 IU/L (46-116); ANION GAP 6 (8-16); ASPARTATE AMINO TRANSFERASE 30 U/L (10-37); BILIRUBIN,TOTAL 0.2 MG/DL (0.1-1.0); BLOOD UREA NITROGEN 22 MG/DL (7-18); BUN/CREATININE RATIO 12.9 (5.4-32.0); CALCIUM 8.5 MG/DL (8.5-10.1); CHLORIDE 101 MMOL/L (99-107); CHOL/HDL RATIO 5.3 (0.00-4.99); CHOLESTEROL 189 MG/DL (0-200); CREATININE 1.71 MG/DL (0.60-1.10); GLUCOSE 197 MG/DL (70-104); HDL CHOLESTEROL 36 MG/DL (35-60); LDL CHOLESTEROL 104 MG/DL (50-100); POTASSIUM 3.5 MMOL/L (3.5-5.1); SODIUM 137 MMOL/L (135-145); TOTAL CARBON DIOXIDE 30.5 MMOL/L (24-32); TOTAL PROTEIN 6.9 G/DL (6.4-8.2); TRIGLYCERIDES 223 MG/DL (20-135); eGFR 44 ML/MIN
[2022-03-24] MEDS: insulin Lispro (HumaLOG) vial - multi-dose SQ SCH ×3 (09:09→19:42)
[2022-03-24] MEDS: azithromycin/NS 500mg/250ml 250 ML IV SCH (09:17)
[2022-03-24] MEDS: amLODIPine 5mg tablet PO SCH (09:19)
[2022-03-24] MEDS: HYDROchlorothiazide 25mg tablet PO SCH (09:19)
[2022-03-24] MEDS: furosemide 20 MG/2 ML vial IV SCH (09:19)
[2022-03-24] MEDS: aspirin 81mg, enteric-coated 1 TAB TABLET.DR PO SCH (09:19)
[2022-03-24] MEDS: docusate sod 100mg capsule PO SCH ×2 (09:19→19:32)
[2022-03-24] MEDS: lisinopril 20mg tablet PO SCH ×2 (09:20→19:33)
[2022-03-24] MEDS: labetalol 100mg tablet PO SCH ×2 (09:20→19:32)
--- NOTE | 2022-03-24 10:24 | NUR ---
ORDER FOR LUMBAR PUNCTURE PUT IN PER DR. SCHREIBER.
[2022-03-24] MEDS ORDERED: LIDOcaine 1%/PF 5ML 10 MG/ML VIAL ONE (11:20)
--- NOTE | 2022-03-24 11:28 | NUR ---
Diabetes consult: Noted pt w/ hx of DM A1c 7.8. Pt states he regularly receives group teachings at the [facility]. Pt declined verbal ed at this time though accepted written DM ed w/ RD contact info. Addendum: 03/24/22 at [address] Amended: Links added.
[2022-03-24] MEDS ORDERED: ondansetron/PF 4mg/2ml inj ONE (12:29)
--- NOTE | 2022-03-24 12:44 | NUR ---
pt at procedure no lunch blood sugar taken Addendum: 03/24/22 at 1245 by Domingo Bartholomew RN Amended: Links added.
[2022-03-24 13:18] LABS: GLUCOSE,CSF 112 MG/DL (40-75); TOTAL PROTEIN,CSF 86 MG/DL (15-45)
[2022-03-24 13:54] LABS: APPEARANCE,CSF CLEAR; CSF RBC 52 /CU MM (0); CSF SUPERNATANT COLOR COLORLESS; CSF VOLUME 15.2 ML; CSF WBC CT 2 /CU MM (0-5); TUBE# COUNTED 1
[2022-03-24 13:55] LABS: APPEARANCE,CSF CLEAR; CSF RBC 2 /CU MM (0); CSF SUPERNATANT COLOR COLORLESS; CSF VOLUME 15.2 ML; CSF WBC CT 0 /CU MM (0-5); TUBE# COUNTED 4
[2022-03-24] MEDS: atorvastatin 20mg tablet PO SCH (21:22)
[2022-03-24] MEDS: CefTRIAXone 2gm/D5W 50ml BAG 50 ML IV SCH (23:23)
[2022-03-25 02:00] VITALS: BP 138/89
[2022-03-25] MEDS: normal saline 1000ml 1,000 ML IV SCH (02:25)
[2022-03-25 06:13] LABS: BASOPHILS % (AUTO) 0.4 % (0-1); EOSINOPHILS # (AUTO) 0.1 X10'3 (0-0.9); EOSINOPHILS % (AUTO) 1.1 % (0-6); HEMATOCRIT 47.5 % (42.0-52.0); HEMOGLOBIN 16.5 g/dl (14.0-17.9); LYMPHOCYTES # (AUTO) 1.8 X10'3 (1.1-4.8); LYMPHOCYTES % (AUTO) 26.1 % (21-51); MEAN CORPUSCULAR HGB CONC 34.7 g/dL (33.0-36.5); MEAN CORPUSCULAR VOLUME 83.6 FL (78-98); MEAN PLATELET VOLUME 10.8 FL (7.4-10.4); MONOCYTES # (AUTO) 0.7 X10'3 (0-0.9); MONOCYTES % (AUTO) 10.8 % (2-12); NEUTROPHILS # (AUTO) 4.2 X10'3 (1.8-7.7); NEUTROPHILS % (AUTO) 61.6 % (42-75); PLATELET COUNT 149 X10'3 (140-440); RED BLOOD COUNT 5.69 X10'6 (4.70-6.10); RED CELL DISTRIBUTION WIDTH 13.5 % (11.5-14.5); WHITE BLOOD COUNT 6.8 X10'3 (4.5-11.0)
[2022-03-25 06:17] LABS: ALANINE AMINOTRANSFERASE 44 U/L (12-78); ALBUMIN 3.2 G/DL (3.4-5.0); ALBUMIN/GLOBULIN RATIO 0.8 (1.1-1.5); ALKALINE PHOSPHATASE 68 IU/L (46-116); ANION GAP 7 (8-16); ASPARTATE AMINO TRANSFERASE 28 U/L (10-37); BILIRUBIN,TOTAL 0.3 MG/DL (0.1-1.0); BLOOD UREA NITROGEN 24 MG/DL (7-18); BUN/CREATININE RATIO 14.3 (5.4-32.0); CALCIUM 8.8 MG/DL (8.5-10.1); CHLORIDE 96 MMOL/L (99-107); CREATININE 1.68 MG/DL (0.60-1.10); GLUCOSE 163 MG/DL (70-104); POTASSIUM 3.3 MMOL/L (3.5-5.1); SODIUM 135 MMOL/L (135-145); eGFR 44 ML/MIN
[2022-03-25] MEDS ORDERED: acetaminophen 1,000mg/100ml IV 100 ML IV PRN (07:15)
[2022-03-25 07:16] VITALS: BP 139/93
[2022-03-25] MEDS ORDERED: acetaminophen 1,000mg/100ml IV 100 ML IV SCH (08:00)
[2022-03-25] MEDS ORDERED: CEFD300C3 PO (09:35)
[2022-03-25] MEDS ORDERED: LABE100T5 PO (09:35)
[2022-03-25] MEDS ORDERED: NOR5T PO (09:35)
[2022-03-25] MEDS: HYDROchlorothiazide 25mg tablet PO SCH (09:44)
[2022-03-25] MEDS: docusate sod 100mg capsule PO SCH (09:44)
[2022-03-25 09:45] VITALS: BP_SYST 139
[2022-03-25] MEDS: aspirin 81mg, enteric-coated 1 TAB TABLET.DR PO SCH (09:45)
[2022-03-25] MEDS: labetalol 100mg tablet PO SCH (09:45)
[2022-03-25] MEDS: amLODIPine 5mg tablet PO SCH (09:45)
[2022-03-25] MEDS: lisinopril 20mg tablet PO SCH (09:45)
[2022-03-25] MEDS: insulin Lispro (HumaLOG) vial - multi-dose SQ SCH (09:50)
--- NOTE | 2022-03-25 14:03 | NUR ---
PT DISCHARGED IN STABLE CONDITION. PT REMOVED OWN IV UNWITNESSED. FOLLOW UP INSTRUCTION GIVEN, ALL QUESTIONS ANSWERED. ALL BELONGINGS IN HAND. Addendum: 03/25/22 at 1404 by Chiquita Klein RN Amended: Links added.
== END 2022-03-25 14:12 | disposition home or self-care (01) | DRG 871 ==
LOC: ER 00:08 → ED HOLD 02:38 → PCU 3S 03-24 00:15
PROVIDERS: ADMIT Family Medicine; ATTEND Family Medicine
PROC: BW251ZZ Computerized Tomography (CT Scan) of Chest, Abdomen and Pelvis using Low Osmolar Contrast (ICD-10-PCS; 2022-03-23)
PROC: 009U3ZX Drainage of Spinal Canal, Percutaneous Approach, Diagnostic (ICD-10-PCS; principal; 2022-03-24)
PROC: B01B1ZZ Fluoroscopy of Spinal Cord using Low Osmolar Contrast (ICD-10-PCS; 2022-03-24)
DX: A41.9 Sepsis, unspecified organism (principal); J18.9 Pneumonia, unspecified organism; I16.1 Hypertensive emergency; N39.0 Urinary tract infection, site not specified; I50.32 Chronic diastolic (congestive) heart failure; N17.9 Acute kidney failure, unspecified; I13.0 Hypertensive heart and chronic kidney disease with heart failure and stage 1 through stage 4 chronic kidney disease, or unspecified chronic kidney disease; D69.6 Thrombocytopenia, unspecified; E11.65 Type 2 diabetes mellitus with hyperglycemia; E78.00 Pure hypercholesterolemia, unspecified; F17.200 Nicotine dependence, unspecified, uncomplicated; E11.22 Type 2 diabetes mellitus with diabetic chronic kidney disease; N18.9 Chronic kidney disease, unspecified; I25.10 Atherosclerotic heart disease of native coronary artery without angina pectoris; K57.90 Diverticulosis of intestine, part unspecified, without perforation or abscess without bleeding; E78.5 Hyperlipidemia, unspecified; K76.0 Fatty (change of) liver, not elsewhere classified; Z20.822 Contact with and (suspected) exposure to COVID-19; Z83.3 Family history of diabetes mellitus; I25.2 Old myocardial infarction; Z87.442 Personal history of urinary calculi; Z80.1 Family history of malignant neoplasm of trachea, bronchus and lung; Z80.0 Family history of malignant neoplasm of digestive organs; Q85.00 Neurofibromatosis, unspecified; Z79.899 Other long term (current) drug therapy; Z79.82 Long term (current) use of aspirin
CPT/HCPCS: 36415; 62328; 70450; 70544; 70551; 71045; 71275; 74174; 77003; 80053; 80061; 80305; 81001; 82550; 82945; 82948; 83036; 83605; 83690; 83735; 83880; 84100; 84145; 84157; 84443; 84484; 85025; 85610; 85730; 87015; 87040; 87070; 87081; 87502; 87503; 87635; 89051; 93005; 94760; 96374; 96375; 99285; C9803; G0378; J0456; J0696; J1170; J1200; J1815; J1885; J1940; J2270; J2405; J3490; J7030; J7040; Q9967